=== PATIENT | female | born 1950 | race Caucasian/White ===

== ENCOUNTER 2018-09-09 13:54 | Inpatient (IN) ==
[2018-09-09] MEDS ORDERED: ONDANSETRON 4 MG/2 ML VIAL IV STA (14:24)
[2018-09-09] MEDS ORDERED: PANTOPRAZOLE 40 MG VIAL IV STA (14:24)
[2018-09-09] MEDS ORDERED: SODIUM CHLORIDE 0.9% 500 ML IV STA (14:24)
[2018-09-09] MEDS ORDERED: HYDROmorphone 2 MG/1 ML VIAL IV STA (14:24)
[2018-09-09 14:41] LABS: Basophils % 0.5 % (0.0-0.8); Eosinophils % 0.5 % (0.00-10.9); Hematocrit 39.1 VOL% (35.7-47.0); Hemoglobin 12.5 GM/DL (12.0-16.0); Immature Granulocytes % 0.3 %; Immature Granulocytes Absolute 0.02 #; Lymphocytes # 1.3 10*3/uL (1.4-4.0); Lymphocytes % 20.5 % (21.3-54.2); Mean Corpuscular Volume 90.9 FL (87-102); Monocytes % 8.7 % (1.7-12.7); Neutrophils % 69.5 % (38.7-73.9); Platelet Count 155 T/CUMM (130-400); White Blood Count 6.1 T/CUMM (4-12)
[2018-09-09 15:11] LABS: Albumin 3.3 G/DL (3.4-5.0); Bilirubin,Total 0.7 MG/DL (0.2-1.0); Calcium 9.6 MG/DL (8.5-10.1); Osmolality,Calculated 278.5 MOS/KG (273-304); Total Protein 6.3 G/DL (6.4-8.3)
[2018-09-09 15:26] LABS: Apearance,Urine CLEAR (Clear); Bilirubin,Urine Negative (Negative); Blood, Urine Small mg/dL (Negative); Glucose,Urine (UA) Negative (Negative); Ketones,Urine Negative (Negative); Mucus,Urine Occasional /LPF (Occasional); Nitrite,Urine Negative (Negative); Protein,Urine Negative; Squamous Epithelial Cell,Urine Occasional /HPF (0-10); Urine Color Colorless (Yellow); Urine Specific Gravity 1.025 (1.001-1.035); Urine Urobilinogen < 2.0 EU/DL (0.2-1.0); WBC,Urine 23 /HPF (0-6)
[2018-09-09] MEDS ORDERED: DICYCLOMINE 20 MG/2 ML AMP IM ONE (16:52)
[2018-09-09] MEDS ORDERED: LEVOFLOXACIN INJ 500 MG in PREMIX 1 EACH IV STA (16:53)
[2018-09-09] MEDS ORDERED: MORPHINE 4 MG/1 ML VIAL IV PRN (19:01)
[2018-09-09] MEDS ORDERED: ACETAMINOPHEN 325 MG TABLET PO PRN (19:01)
[2018-09-09] MEDS: ONDANSETRON 4 MG/2 ML VIAL IV PRN (19:28)
[2018-09-09] MEDS: DICYCLOMINE 20 MG TABLET PO SCH (22:07)
[2018-09-09] MEDS: ENOXAPARIN 40 MG/0.4 ML SYRINGE SUBCUT SCH (22:07)
[2018-09-09] MEDS: SODIUM CHLORIDE 0.9% 1,000 ML IV SCH (22:08)
[2018-09-09] MEDS: LEVOFLOXACIN INJ 500 MG in PREMIX 1 EACH IV SCH (22:17)
[2018-09-10] MEDS: ONDANSETRON 4 MG/2 ML VIAL IV PRN (00:09)
[2018-09-10] MEDS ORDERED: PROMETHAZINE 25 MG/1 ML VIAL IM PRN (03:22)
[2018-09-10] MEDS ORDERED: LORazepam 2 MG/1 ML VIAL IV ONE (03:37)
[2018-09-10 03:52] LABS: Basophils # 0.1 10*3/uL (0.0-0.2); Basophils % 0.9 % (0.0-0.8); Eosinophils # 0.1 10*3/uL (0.0-0.87); Eosinophils % 1.3 % (0.00-10.9); Hematocrit 39.3 VOL% (35.7-47.0); Hemoglobin 12.7 GM/DL (12.0-16.0); Immature Granulocytes % 0.2 %; Immature Granulocytes Absolute 0.01 #; Lymphocytes % 36.5 % (21.3-54.2); Mean Corpuscular HGB Conc 32.3 GM/DL (32-36); Mean Corpuscular Volume 89.3 FL (87-102); Monocytes % 8.9 % (1.7-12.7); Neutrophils % 52.2 % (38.7-73.9); Platelet Count 177 T/CUMM (130-400); Red Cell Distribution Width 12.8 % (9.3-17.3); White Blood Count 5.4 T/CUMM (4-12)
[2018-09-10 04:05] LABS: Albumin 3.1 G/DL (3.4-5.0); Bilirubin,Total 0.7 MG/DL (0.2-1.0); Calcium 9.7 MG/DL (8.5-10.1); Osmolality,Calculated 281.1 MOS/KG (273-304); Risk Ratio 2.68; Total Protein 6.2 G/DL (6.4-8.3); VLDL CHOLESTEROL 24.8 MG/DL
[2018-09-10] MEDS: SODIUM CHLORIDE 0.9% 1,000 ML IV SCH ×2 (07:07→18:09)
[2018-09-10] MEDS: SERTRALINE 100 MG TABLET PO SCH (08:01)
[2018-09-10] MEDS: PANTOPRAZOLE 40 MG TABLET PO SCH (08:01)
[2018-09-10] MEDS: DICYCLOMINE 20 MG TABLET PO SCH ×4 (08:01→21:51)
[2018-09-10] MEDS: BISACODYL 5 MG TABLET PO SCH ×2 (12:30→21:57)
[2018-09-10] MEDS: VALSARTAN/HCTZ 160-12.5 MG TABLET PO SCH (13:00)
[2018-09-10] MEDS ORDERED: POLYETHYLENE GLYCOL POWDER 255 GM BOTTLE PO ONE (18:00)
[2018-09-10] MEDS ORDERED: MAGNESIUM CITRATE 300 ML BOTTLE PO ONE (21:00)
[2018-09-10] MEDS: ENOXAPARIN 40 MG/0.4 ML SYRINGE SUBCUT SCH (21:52)
[2018-09-10] MEDS: LEVOFLOXACIN INJ 500 MG in PREMIX 1 EACH IV SCH (22:54)
[2018-09-11] MEDS: SODIUM CHLORIDE 0.9% 1,000 ML IV SCH ×4 (01:01→21:09)
[2018-09-11] MEDS: BISACODYL 5 MG TABLET PO SCH (04:12)
[2018-09-11 06:20] LABS: Basophils # 0.1 10*3/uL (0.0-0.2); Basophils % 0.8 % (0.0-0.8); Eosinophils # 0.3 10*3/uL (0.0-0.87); Eosinophils % 4.2 % (0.00-10.9); Hematocrit 39.1 VOL% (35.7-47.0); Hemoglobin 12.6 GM/DL (12.0-16.0); Immature Granulocytes % 0.3 %; Immature Granulocytes Absolute 0.02 #; Lymphocytes # 2.6 10*3/uL (1.4-4.0); Lymphocytes % 35.9 % (21.3-54.2); Mean Corpuscular HGB Conc 32.2 GM/DL (32-36); Mean Corpuscular Volume 90.3 FL (87-102); Mean Platelet Volume 9.9 FL (9.6-12.0); Monocytes % 9.8 % (1.7-12.7); Platelet Count 178 T/CUMM (130-400); Red Blood Count 4.33 MC/CUMM (3.8-5.5); Red Cell Distribution Width 12.9 % (9.3-17.3); White Blood Count 7.2 T/CUMM (4-12)
[2018-09-11 06:38] LABS: Calcium 9.6 MG/DL (8.5-10.1); Osmolality,Calculated 280.1 MOS/KG (273-304)
[2018-09-11] MEDS: VALSARTAN/HCTZ 160-12.5 MG TABLET PO SCH (08:06)
[2018-09-11] MEDS: DICYCLOMINE 20 MG TABLET PO SCH ×4 (08:06→20:53)
[2018-09-11] MEDS: PANTOPRAZOLE 40 MG TABLET PO SCH (08:06)
[2018-09-11] MEDS: SERTRALINE 100 MG TABLET PO SCH (08:06)
[2018-09-11] MEDS ORDERED: POTASSIUM CHLORIDE 20 MEQ PACK PO ONE (13:20)
[2018-09-11] MEDS: ENOXAPARIN 40 MG/0.4 ML SYRINGE SUBCUT SCH (20:53)
[2018-09-11] MEDS: LEVOFLOXACIN INJ 500 MG in PREMIX 1 EACH IV SCH (22:01)
[2018-09-12 05:18] LABS: Basophils # 0.1 10*3/uL (0.0-0.2); Basophils % 0.9 % (0.0-0.8); Eosinophils # 0.3 10*3/uL (0.0-0.87); Eosinophils % 4.7 % (0.00-10.9); Hematocrit 37.9 VOL% (35.7-47.0); Hemoglobin 12.3 GM/DL (12.0-16.0); Immature Granulocytes % 0.3 %; Immature Granulocytes Absolute 0.02 #; Lymphocytes # 2.5 10*3/uL (1.4-4.0); Lymphocytes % 38.3 % (21.3-54.2); Mean Corpuscular HGB Conc 32.5 GM/DL (32-36); Mean Corpuscular Volume 90.5 FL (87-102); Mean Platelet Volume 9.6 FL (9.6-12.0); Monocytes % 7.1 % (1.7-12.7); Neutrophils % 48.7 % (38.7-73.9); Platelet Count 185 T/CUMM (130-400); Red Blood Count 4.19 MC/CUMM (3.8-5.5); Red Cell Distribution Width 12.9 % (9.3-17.3); White Blood Count 6.6 T/CUMM (4-12)
[2018-09-12 05:28] LABS: Calcium 9.5 MG/DL (8.5-10.1)
[2018-09-12 05:58] LABS: Hypochromasia 1+; Platelet Estimate Adequate
[2018-09-12] MEDS: VALSARTAN/HCTZ 160-12.5 MG TABLET PO SCH ×2 (06:55→09:00)
[2018-09-12] MEDS: SODIUM CHLORIDE 0.9% 1,000 ML IV SCH ×2 (07:05→17:01)
[2018-09-12] MEDS ORDERED: LACTATED RINGERS 1,000 ML IV SCH (08:00)
[2018-09-12] MEDS ORDERED: PROPOFOL 200 MG/20 ML VIAL IV ONE (10:00)
[2018-09-12] MEDS ORDERED: ONDANSETRON 4 MG/2 ML VIAL ONE (10:00)
[2018-09-12] MEDS ORDERED: LIDOCAINE 2% 5 ML VIAL ONE (10:00)
[2018-09-12] MEDS: DICYCLOMINE 20 MG TABLET PO SCH ×4 (11:41→21:22)
[2018-09-12] MEDS: SERTRALINE 100 MG TABLET PO SCH (11:42)
[2018-09-12] MEDS: PANTOPRAZOLE 40 MG TABLET PO SCH (11:42)
[2018-09-12] MEDS: ENOXAPARIN 40 MG/0.4 ML SYRINGE SUBCUT SCH (21:24)
[2018-09-12] MEDS: LEVOFLOXACIN INJ 500 MG in PREMIX 1 EACH IV SCH (21:25)
[2018-09-13] MEDS: SODIUM CHLORIDE 0.9% 1,000 ML IV SCH ×2 (03:26→13:01)
[2018-09-13 05:02] LABS: Basophils # 0.1 10*3/uL (0.0-0.2); Eosinophils # 0.3 10*3/uL (0.0-0.87); Eosinophils % 4.7 % (0.00-10.9); Hematocrit 36.2 VOL% (35.7-47.0); Immature Granulocytes % 0.3 %; Immature Granulocytes Absolute 0.02 #; Lymphocytes # 2.6 10*3/uL (1.4-4.0); Lymphocytes % 42.9 % (21.3-54.2); Mean Corpuscular HGB Conc 33.1 GM/DL (32-36); Mean Corpuscular Volume 88.7 FL (87-102); Mean Platelet Volume 9.4 FL (9.6-12.0); Monocytes % 7.5 % (1.7-12.7); Neutrophils % 43.6 % (38.7-73.9); Platelet Count 193 T/CUMM (130-400); Red Blood Count 4.08 MC/CUMM (3.8-5.5); Red Cell Distribution Width 12.7 % (9.3-17.3); White Blood Count 6.1 T/CUMM (4-12)
[2018-09-13 06:02] LABS: Calcium 9.5 MG/DL (8.5-10.1)
[2018-09-13] MEDS ORDERED: VALSARTAN 160 MG TABLET PO SCH (09:00)
[2018-09-13] MEDS: DICYCLOMINE 20 MG TABLET PO SCH ×2 (09:24→13:27)
[2018-09-13] MEDS: PANTOPRAZOLE 40 MG TABLET PO SCH (09:25)
[2018-09-13] MEDS: SERTRALINE 100 MG TABLET PO SCH (09:25)
[2018-09-13 11:50] VITALS: BP 160/71
== END 2018-09-13 14:36 | disposition home or self-care (01) | DRG 389 ==
LOC: N.ED 13:54 → N.3E 18:20
PROVIDERS: ADMIT Internal Medicine; ATTEND Internal Medicine
PROC: COLONBX (2018-09-11 07:00)